=== PATIENT | male | born 1975 | race Caucasian/White ===

== ENCOUNTER → 2019-10-30 14:38 | Outpatient (CLI) | payer BC, SELFPAY ==
--- NOTE | ~2019-10-30 | XR_ITS ---
EXAMINATION: XR lumbar spine 1V DATE: 10/30/2019 15:06 INDICATION: Acute bilateral low back pain after coughing without sciatica. TECHNIQUE: 1. Lateral view of the lumbar spine obtained. 2. 3 views of the sacrum and coccyx including lateral, AP and angled AP views were obtained. COMPARISON: None. FINDINGS: Alignment is normal. Lumbar vertebral body heights are normal. Mild disc height loss at L1-L2 and mod erate disc height loss at L3-L4. Mild lumbar facet osteoarthritis. Sacral arches are intact. Bilatera l sacroiliac and hip joint spaces appear normal. IMPRESSION: 1. Mild lumbar spondylosis most notable for mild to moderate disc height loss at L3-L4. Reviewed, dictated and finalized at location A. ING PIT OPERATOR IMPRESSION: 1. Mild lumbar spondylosis most notable for mild to moderate disc height loss a t L3-L4.
--- NOTE | ~2019-10-30 | XR_ITS ---
EXAMINATION: XR sacrum coccyx min 2V DATE: 10/30/2019 15:06 INDICATION: Acute bilateral low back pain after coughing without sciatica. TECHNIQUE: 1. Lateral view of the lumbar spine obtained. 2. 3 views of the sacrum and coccyx including lateral, AP and angled AP views were obtained. COMPARISON: None. FINDINGS: Alignment is normal. Lumbar vertebral body heights are normal. Mild disc height loss at L1-L2 and mod erate disc height loss at L3-L4. Mild lumbar facet osteoarthritis. Sacral arches are intact. Bilatera l sacroiliac and hip joint spaces appear normal. IMPRESSION: 1. Mild lumbar spondylosis most notable for mild to moderate disc height loss at L3-L4. Reviewed, dictated and finalized at location A. NG MACHINE OPERATOR [employer] IMPRESSION: 1. Mild lumbar spondylosis most notable for mild to moderate disc height loss a t L3-L4.
== END ==
PROVIDERS: PCP Physician Assistant; Visit Provider Physician Assistant
DX: M47.896 Other spondylosis, lumbar region (principal)
CPT/HCPCS: 72020; 72220